=== PATIENT | male | born 1965 | race Caucasian/White ===

== ENCOUNTER 2017-04-15 08:00 | Outpatient (CLI) | payer MEDICAID ==
[2017-04-15 19:51] LABS: BASOPHILS # (AUTO) 0.1 10^3/uL (0.0-0.1); BASOPHILS % (AUTO) 1.2 %; EOSINOPHILS # (AUTO) 0.2 10^3/uL (0.0-0.7); EOSINOPHILS % (AUTO) 2.8 %; HCT - HEMATOCRIT 47.4 % (42.0-52.0); HGB - HEMOGLOBIN 16.4 g/dL (14.0-18.0); LYMPHOCYTES # (AUTO) 1.8 10^3/uL (1.5-3.5); LYMPHOCYTES % (AUTO) 22.1 %; MEAN CORPUSCULAR HEMOGLOBIN 38.5 pg (27.0-31.0); MEAN CORPUSCULAR HGB CONC 34.5 g/dL (32.0-36.0); MEAN CORPUSCULAR VOLUME 111.6 fL (80.0-94.0); MEAN PLATELET VOLUME 9.3 fL (7.4-11.4); MONOCYTES # (AUTO) 0.6 10^3/uL (0.0-1.0); NEUTROPHILS # (AUTO) 5.4 10^3/uL (1.5-6.6); NEUTROPHILS % (AUTO) 66.9 %; NUCLEATED RED BLOOD CELLS AUTO 0.1 /100WBC; RED BLOOD COUNT 4.25 10^6/uL (4.70-6.10); RED CELL DISTRIBUTION WIDTH 15.7 % (12.0-15.0)
[2017-04-15 19:59] LABS: ALBUMIN/GLOBULIN RATIO 1.3 (1.0-2.2); BILIRUBIN,TOTAL 2.3 mg/dL (0.2-1.0); BUN - BLOOD UREA NITROGEN 9 mg/dL (6-20); CALCIUM 9.4 mg/dL (8.5-10.3); CARBON DIOXIDE - CO2 29 mmol/L (21-32); CHLORIDE 98 mmol/L (101-111); CHOLESTEROL 221 mg/dL; CREATININE 0.8 mg/dL (0.6-1.2); GFR - MDRD 101 (>89); GLUCOSE 120 mg/dL (70-100); HDL CHOLESTEROL 74 mg/dL; LDL/HDL RATIO 1.7 (<3.6); POTASSIUM 3.4 mmol/L (3.5-5.0); SODIUM 137 mmol/L (135-145); TOTAL PROTEIN 7.2 g/dL (6.7-8.2); TRIGLYCERIDES 97 mg/dL; VLDL CHOLESTEROL 19 mg/dL
[2017-04-15 20:12] LABS: PLATELET ESTIMATE, MANUAL NORMAL (130-450,000) (NORMAL); PLATELET MORPHOLOGY RARE GIANT PLATELETS (NORMAL); WBC MORPHOLOGY (MULTIPLE) RARE HYPERSEG NEUT (NORMAL)
== END 2017-04-15 08:01 | disposition home or self-care (01) ==
LOC: LAB.N 08:00
PROVIDERS: ATTEND Nurse Practitioner Gerontology
DX: Z13.9 Encounter for screening, unspecified (principal)
CPT/HCPCS: 36415; 80053; 80061; 85025

== ENCOUNTER 2017-05-10 14:54 | Outpatient (CLI) | payer MEDICAID ==
--- NOTE | 2017-05-10 19:08 | Ultrasound Report ---
LIMITED ULTRASOUND EXAM: 05/10/2017 CLINICAL HISTORY: Elevated bilirubin. TECHNIQUE: Real-time scanning was performed with solar manufacturer's representative static images obtained. FINDINGS: Liver appears normal. Normal hepatopetal flow is seen in the portal vein. Liver length i s 12.8 cm. Gallbladder is mildly distended without wall thickening or calculi. This mild distention most likely is related to the relative n.p.o. status. No tenderness was noted over the gallbladder. Examinatio n is negative for wall thickening or stones. Common bile duct measures 4 mm. This is within normal limits. Right kidney measures 10.9 cm without pyelocaliceal system dilatation. IMPRESSION: NO SIGNIFICANT ABNORMALITY. JOB #: [id number] EXT JOB #:[id number]
== END 2017-05-10 14:55 | disposition home or self-care (01) ==
LOC: DI 14:54
PROVIDERS: ATTEND Nurse Practitioner Gerontology
DX: R17 Unspecified jaundice (principal)
CPT/HCPCS: 76705

== ENCOUNTER 2017-08-04 15:12 | Outpatient (CLI) | payer MEDICAID ==
[2017-08-04 19:34] LABS: ALBUMIN/GLOBULIN RATIO 1.2 (1.0-2.2); BILIRUBIN,TOTAL 1.6 mg/dL (0.2-1.0); CALCIUM 9.1 mg/dL (8.5-10.3); CREATININE 0.9 mg/dL (0.6-1.2); POTASSIUM 3.1 mmol/L (3.5-5.0); TOTAL PROTEIN 7.3 g/dL (6.7-8.2)
== END 2017-08-04 15:13 | disposition home or self-care (01) ==
LOC: LAB.N 15:12
PROVIDERS: ATTEND Nurse Practitioner Gerontology
DX: E87.6 Hypokalemia (principal); R17 Unspecified jaundice
CPT/HCPCS: 36415; 80053

== ENCOUNTER 2017-08-26 07:01 | Outpatient (CLI) | payer MEDICAID ==
[2017-08-26 19:28] LABS: ALBUMIN/GLOBULIN RATIO 1.3 (1.0-2.2); BILIRUBIN,TOTAL 0.8 mg/dL (0.2-1.0); CALCIUM 8.7 mg/dL (8.5-10.3); CREATININE 0.9 mg/dL (0.6-1.2); POTASSIUM 2.8 mmol/L (3.5-5.0); TOTAL PROTEIN 6.8 g/dL (6.7-8.2)
== END 2017-08-26 07:02 | disposition home or self-care (01) ==
LOC: LAB.N 07:01
PROVIDERS: ATTEND Nurse Practitioner Gerontology
DX: Z11.3 Encounter for screening for infections with a predominantly sexual mode of transmission (principal); Z13.9 Encounter for screening, unspecified
CPT/HCPCS: 36415; 80053; 86803; 87389

== ENCOUNTER 2017-10-20 08:00 | Outpatient (CLI) | payer MEDICAID | END 2017-10-20 08:01 | disposition home or self-care (01) | LOC: LAB.N 08:00 | PROVIDERS: ATTEND Nurse Practitioner Gerontology | DX: E87.6 Hypokalemia (principal) | CPT/HCPCS: 36415; 84132 ==

== ENCOUNTER 2017-12-06 11:58 | Outpatient (CLI) | payer MEDICAID ==
--- NOTE | 2017-12-06 19:09 | XRAY Report ---
DATE OF SERVICE: 12/06/2017 LEFT RIBS WITH FRONTAL CHEST: 12/06/2017 CLINICAL INDICATION: Fall, rib pain. COMPARISON: 08/30/2012 Frontal view of the chest and oblique views of the left ribs were obtained. There are acute fractures of the left 8th and 9th ribs laterally, minimally displaced. Old, healed left 6th and 7th rib fractures are noted, as is an old, healed right 9th rib fracture. The cardiac silhouette is within normal limits. The lungs are clear. No effusion or pneumothorax is seen. IMPRESSION: Acute, minimally displaced left 8th and 9th rib fractures. No pneumothorax. TD: 12/06/2017 20:08
== END 2017-12-06 11:59 | disposition home or self-care (01) ==
LOC: DI 11:58
PROVIDERS: ATTEND Nurse Practitioner Gerontology
DX: S22.42XA Multiple fractures of ribs, left side, initial encounter for closed fracture (principal)

== ENCOUNTER 2021-01-15 16:12 | Outpatient (CLI) | payer MEDICAID ==
--- NOTE | 2021-01-15 18:58 | XRAY Report ---
PROCEDURE: Femur 2V RT INDICATIONS: HIP JOINT PAIN, RIGHT TECHNIQUE: 2 views of the femur were acquired. COMPARISON: None. FINDINGS: Bones: There is ORIF of the right femoral neck and proximal femoral diaphysis. Hardware is intact wit hout evidence of hardware fracture or periprosthetic lucency. There is good anatomic alignment. No pitts spicious bony lesions. Soft tissues: No suspicious soft tissue calcifications or masses. IMPRESSION: Right femoral ORIF as above. Reviewed by: Malorie Conte MD on 01/15/2021 5:56 PM [place] Approved by: Malorie Conte MD on 01/15/2021 5:56 PM [place] Station ID: [id number]
--- NOTE | 2021-01-15 19:29 | XRAY Report ---
PROCEDURE: Lumbar Spine 2 View INDICATIONS: CHRONIC LOW BACK PAIN TECHNIQUE: 2 views of the lumbar spine were acquired. COMPARISON: None. FINDINGS: Bones: 5 [id number] vertebrae are present. There is normal bony alignment. No vertebral body compression fractures. No suspicious bony lesions. There is a mild degree of degenerative disc disea se along the lumbosacral spine until the L5-S1 level is reached where moderately severe degeneration can be seen. 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 Soft tissues: Over lying bowel gas pattern is normal. No suspicious soft tissue calcifications. IMPRESSION: No acute trauma found, no compression fracture seen but there is moderately severe to se love degenerative changes at the L5-S1 level. Above that level the degeneration is mild in overall se verity. Reviewed by: Jarad Sheriff MD on 01/15/2021 7:28 PM PST Approved by: Jarad Sheriff MD on 01/15/2021 7:28 PM PST Station ID: [id number]
--- NOTE | 2021-01-16 08:16 | XRAY Report ---
PROCEDURE: Hip w/Pelvis 2-3V RT INDICATIONS: HIP JOINT PAIN, RIGHT TECHNIQUE: AP pelvis with lateral view(s) of the bilateral hip(s). COMPARISON: None. FINDINGS: Bones: Status post right hip ORIF. No hardware malfunction. No pericardial hardware lucency to sugges t loosening. Both hips have mild degenerative changes. An osteophyte projects medially from the lesse r trochanter. No fractures or dislocations. Pelvic ring appears intact. No suspicious bony lesions. Soft tissues: The visualized bowel gas pattern is normal. No suspicious soft tissue calcifications. IMPRESSION: No acute abnormality of the right hip or pelvis. Reviewed by: Alvino Goldman on 01/16/2021 8:15 AM [facility] Approved by: Alvino Goldman on 01/16/2021 8:15 AM [facility] Station ID: [id number]
== END 2021-01-15 16:13 | disposition home or self-care (01) ==
LOC: DI.N 16:12
PROVIDERS: ATTEND Family Medicine
DX: M47.817 Spondylosis without myelopathy or radiculopathy, lumbosacral region (principal); M25.551 Pain in right hip

== ENCOUNTER 2021-01-23 13:39 | Outpatient (CLI) | payer MEDICAID ==
[2021-01-23 18:34] LABS: BASOPHILS # (AUTO) 0.1 10^3/uL (0.0-0.1); BASOPHILS % (AUTO) 0.6 %; EOSINOPHILS # (AUTO) 0.3 10^3/uL (0.0-0.7); EOSINOPHILS % (AUTO) 3.2 %; HCT - HEMATOCRIT 50.3 % (42.0-52.0); LYMPHOCYTES # (AUTO) 2.3 10^3/uL (1.5-3.5); LYMPHOCYTES % (AUTO) 22.2 %; MEAN CORPUSCULAR HEMOGLOBIN 39.8 pg (27.0-31.0); MEAN CORPUSCULAR HGB CONC 35.8 g/dL (32.0-36.0); MEAN CORPUSCULAR VOLUME 111.3 fL (80.0-94.0); MEAN PLATELET VOLUME 10.6 fL (7.4-11.4); MONOCYTES # (AUTO) 0.8 10^3/uL (0.0-1.0); MONOCYTES % (AUTO) 7.7 %; NEUTROPHILS # (AUTO) 6.7 10^3/uL (1.5-6.6); PLT - PLATELET COUNT 233 10^3/uL (130-450); RED BLOOD COUNT 4.52 10^6/uL (4.70-6.10); RED CELL DISTRIBUTION WIDTH 16.1 % (12.0-15.0); WHITE BLOOD COUNT 10.2 x10^3/uL (4.8-10.8)
[2021-01-23 19:15] LABS: ALBUMIN/GLOBULIN RATIO 1.2 (1.0-2.2); BILIRUBIN,TOTAL 1.7 mg/dL (0.2-1.0); CREATININE 0.9 mg/dL (0.6-1.2); POTASSIUM 3.7 mmol/L (3.5-5.0); TOTAL PROTEIN 7.3 g/dL (6.7-8.2)
[2021-01-23 19:16] LABS: PLATELET ESTIMATE, MANUAL NORMAL (130-450,000) (NORMAL); PLATELET MORPHOLOGY NORMAL APPEARANCE (NORMAL)
[2021-01-23 19:17] LABS: WBC MORPHOLOGY (MULTIPLE) NORMAL APPEARANCE (NORMAL)
[2021-01-23 19:22] LABS: THYROID STIMULATING HORMONE 3.4 uIU/mL (0.34-5.60)
== END 2021-01-23 23:59 | disposition home or self-care (01) ==
LOC: LAB.WCP 13:39
PROVIDERS: ATTEND Family Medicine
DX: R63.0 Anorexia (principal); R63.4 Abnormal weight loss; M54.5 Low back pain; G89.29 Other chronic pain; M25.551 Pain in right hip
CPT/HCPCS: 36415; 80053; 84443; 85025

== ENCOUNTER 2021-12-18 08:00 | Outpatient (CLI) | payer MEDICAID ==
[2021-12-18 18:24] LABS: ALBUMIN 4.2 g/dL (3.2-5.5); ALBUMIN/GLOBULIN RATIO 1.2 (1.0-2.2); ALKALINE PHOSPHATASE 90 IU/L (42-121); ALT ALANINE AMINOTRANSFERASE 17 IU/L (10-60); AST ASPARTATE AMINOTRANSFERASE 19 IU/L (10-42); BILIRUBIN,TOTAL 1.5 mg/dL (0.2-1.0); BUN - BLOOD UREA NITROGEN 9 mg/dL (6-20); CALCIUM 9.4 mg/dL (8.5-10.3); CARBON DIOXIDE - CO2 34 mmol/L (21-32); CHLORIDE 94 mmol/L (101-111); CHOL/HDL RATIO 3.1 (<5.0); CHOLESTEROL 184 mg/dL; CREATININE 0.8 mg/dL (0.6-1.2); GFR - MDRD 99 (>89); GLUCOSE 140 mg/dL (70-100); HDL CHOLESTEROL 60 mg/dL; LDL CHOLESTEROL,CALCULATED 104 mg/dL; LDL/HDL RATIO 1.7 (<3.6); POTASSIUM 2.8 mmol/L (3.5-5.0); SODIUM 140 mmol/L (135-145); TOTAL PROTEIN 7.7 g/dL (6.7-8.2); TRIGLYCERIDES 101 mg/dL; VLDL CHOLESTEROL 20 mg/dL
[2021-12-18 18:29] LABS: THYROID STIMULATING HORMONE 3.99 uIU/mL (0.34-5.60)
[2021-12-18 18:37] LABS: BASOPHILS # (AUTO) 0.1 10^3/uL (0.0-0.1); BASOPHILS % (AUTO) 0.6 %; EOSINOPHILS # (AUTO) 0.4 10^3/uL (0.0-0.7); EOSINOPHILS % (AUTO) 3.7 %; HGB - HEMOGLOBIN 17.2 g/dL (14.0-18.0); LYMPHOCYTES # (AUTO) 3.6 10^3/uL (1.5-3.5); LYMPHOCYTES % (AUTO) 33.5 %; MEAN CORPUSCULAR HEMOGLOBIN 40.3 pg (27.0-31.0); MEAN CORPUSCULAR HGB CONC 36.6 g/dL (32.0-36.0); MEAN CORPUSCULAR VOLUME 110.1 fL (80.0-94.0); MEAN PLATELET VOLUME 10.7 fL (7.4-11.4); MONOCYTES # (AUTO) 1.1 10^3/uL (0.0-1.0); MONOCYTES % (AUTO) 10.7 %; NEUTROPHILS # (AUTO) 5.5 10^3/uL (1.5-6.6); NEUTROPHILS % (AUTO) 51.1 %; PLT - PLATELET COUNT 257 10^3/uL (130-450); RED BLOOD COUNT 4.27 10^6/uL (4.70-6.10); RED CELL DISTRIBUTION WIDTH 14.2 % (12.0-15.0); WHITE BLOOD COUNT 10.7 x10^3/uL (4.8-10.8)
[2021-12-18 18:55] LABS: SLIDE REVIEW? Indicated
[2021-12-18 20:00] LABS: PLATELET ESTIMATE, MANUAL NORMAL (130-450,000) (NORMAL); PLATELET MORPHOLOGY NORMAL APPEARANCE (NORMAL); RBC MORPHOLOGY (MULTIPLE) 2+ MACROCYTOSIS (NORMAL)
== END 2021-12-18 23:59 | disposition home or self-care (01) ==
LOC: LAB.WCP 08:00
PROVIDERS: ATTEND Family Medicine
DX: K21.9 Gastro-esophageal reflux disease without esophagitis (principal); M25.551 Pain in right hip; E87.6 Hypokalemia; F17.210 Nicotine dependence, cigarettes, uncomplicated; R17 Unspecified jaundice; Z13.9 Encounter for screening, unspecified
CPT/HCPCS: 36415; 80053; 80061; 83721; 84153; 84443; 85025

== ENCOUNTER 2021-12-21 13:32 | Outpatient (CLI) | payer MEDICAID ==
[2021-12-21 18:21] LABS: CALCIUM 9.4 mg/dL (8.5-10.3)
[2021-12-21 19:15] LABS: ESTIMATED AVERAGE GLUCOSE 100 mg/dL (70-100); HEMOGLOBIN A1c% 5.1 % (4.27-6.07)
== END 2021-12-21 23:59 | disposition home or self-care (01) ==
LOC: LAB.WCP 13:32
PROVIDERS: ATTEND Family Medicine
DX: E87.6 Hypokalemia (principal); R73.9 Hyperglycemia, unspecified
CPT/HCPCS: 36415; 80048; 83036